=== PATIENT | male | born 1960 | race Caucasian/White ===

== ENCOUNTER 2018-07-13 12:09 | Observation (INO) | payer BC, OTHER ==
[2018-07-13] MEDS ORDERED: SODIUM CHLORIDE 0.9% FLUSH 10 ML SOL IV PRN (12:13)
[2018-07-13] MEDS ORDERED: NITROGLYCERIN 0.4 MG TAB SL PRN (12:13)
[2018-07-13] MEDS ORDERED: ASPIRIN 81 MG CHEWABLE CTB PO STA (12:13)
[2018-07-13 12:20] LABS: HEMATOCRIT 57 % (39-53); MEAN CORPUSCULAR HEMOGLOBIN 28.3 pg (27.0-32.0); MEAN CORPUSCULAR HGB CONC 32.4 gm/dl (32.0-36.0); MEAN CORPUSCULAR VOLUME 87 fL (80-100)
[2018-07-13] MEDS ORDERED: ASPIRIN 81 MG CHEWABLE CTB ONE (12:20)
[2018-07-13 12:25] LABS: HEMOGLOBIN 18.6 gm/dl (13.5-17.7)
[2018-07-13] MEDS ORDERED: ONDANSETRON HCL 4 MG/2 ML SOL IV ONE (12:26)
[2018-07-13] MEDS ORDERED: SODIUM CHLORIDE 0.9% 1000ML 1,000 ML IV ONE ×2 (12:26→18:45)
[2018-07-13 12:35] LABS: BAND NEUTROPHILS % (MANUAL) 9 %; BASOPHILS % (MANUAL) 0 % (0-3); EOSINOPHILS % (MANUAL) 0 % (0-9); LYMPHOCYTES % (MANUAL) 10 % (10-50); MONOCYTES % (MANUAL) 1 % (0-12); NEUTROPHILS % (MANUAL) 80 % (37-80)
[2018-07-13 12:36] LABS: NORMAL RBCS PRESENT
[2018-07-13 12:39] LABS: BLOOD UREA NITROGEN 25 mg/dl (7-18); CARBON DIOXIDE 26.4 mEq/L (21-32); CHLORIDE 102 mMol/L (98-107); CREATINE KINASE 60 U/L (39-308); CREATININE 1.14 mg/dl (0.80-1.30); GLUCOSE 135 mg/dl (74-106); SODIUM 139 mMol/L (136-145); TROP I < 0.017 ng/ml (0.000-0.056)
[2018-07-13] MEDS ORDERED: ONDANSETRON HCL 4 MG TAB ONE (12:46)
[2018-07-13] MEDS ORDERED: ONDANSETRON HCL 4 MG/2 ML SOL ONE (12:47)
[2018-07-13] MEDS: DEXTROSE/SALINE 0.45/KCL 20MEQ 1,000 ML/1,000 ML SOL IV SCH (14:37)
[2018-07-13 14:50] VITALS: RESP 18
[2018-07-13 15:36] LABS: APPEARANCE,URINE Slightly Cloudy; BILIRUBIN,URINE NEGATIVE (NEGATIVE); COLOR,URINE Dark yellow; GLUCOSE, URINE (UA) NEGATIVE (NEGATIVE); KETONES,URINE TRACE (NEGATIVE); LEUKOCYTE ESTERASE ,URINE NEGATIVE (NEGATIVE); NITRATE,URINE NEGATIVE (NEGATIVE); OCCULT BLOOD,URINE NEGATIVE (NEG-TRACE); PH,URINE 5.5; UROBILINOGEN,URINE 0.2 (0.2-1.0 EU)
[2018-07-13 15:46] LABS: BACTERIA NEGATIVE (< 1+); CRYSTALS NEGATIVE (0-3 AVE/HPF); RBC,URINE NEG (0-3AV/HPF); WBC,URINE 0-1 (0-5AV/HPF)
[2018-07-13] MEDS ORDERED: ACETAMINOPHEN 325 MG PO PRN (18:32)
[2018-07-13] MEDS ORDERED: TEMAZEPAM 15MG 15 MG CAP PO PRN (18:32)
[2018-07-13] MEDS ORDERED: LOVASTATIN 20 MG TABLET ONE (20:34)
[2018-07-13] MEDS ORDERED: PANTOPRAZOLE SODIUM 40 MG ECT PO SCH (21:00)
[2018-07-13] MEDS ORDERED: LOVASTATIN 10 MG TAB PO SCH (21:00)
[2018-07-13] MEDS ORDERED: ASPIRIN 325 MG TAB PO SCH (21:00)
[2018-07-13] MEDS ORDERED: ALLOPURINOL 100 MG TAB PO SCH (21:00)
[2018-07-13 21:18] VITALS: O2SAT 94
[2018-07-14] MEDS: DEXTROSE/SALINE 0.45/KCL 20MEQ 1,000 ML/1,000 ML SOL IV SCH (00:11)
[2018-07-14 07:17] LABS: BASOPHILS % (AUTO) 1 % (0-3); EOSINOPHILS % (AUTO) 2 % (0-9); HEMATOCRIT 47 % (39-53); HEMOGLOBIN 15.5 gm/dl (13.5-17.7); LYMPHOCYTES % (AUTO) 16.1 % (10-50); MEAN CORPUSCULAR HEMOGLOBIN 28.4 pg (27.0-32.0); MEAN CORPUSCULAR VOLUME 86 fL (80-100); MONOCYTES % (AUTO) 11.2 % (0-12); NEUTROPHILS % (AUTO) 69.9 % (37-80)
[2018-07-14 07:22] LABS: CALCIUM 7.8 mg/dl (8.5-10.1); CARBON DIOXIDE 25.2 mEq/L (21-32); CREATININE 1.05 mg/dl (0.80-1.30)
[2018-07-14 07:36] VITALS: BP 114/75; PULSE 78; TEMP 97.4
[2018-07-14] MEDS ORDERED: OMEPRAZOLE 20 MG CAPSULE PO SCH (09:00)
== END 2018-07-14 10:16 | disposition home or self-care (01) ==
LOC: ED 12:09 → ACUTE CARE 14:17 → UNDOADMOB 14:17 → ACUTE CARE 14:30
PROVIDERS: ADMIT Family Medicine; ATTEND Family Medicine
DX: N17.9 Acute kidney failure, unspecified (principal); R11.2 Nausea with vomiting, unspecified; R06.02 Shortness of breath; B34.9 Viral infection, unspecified; I45.6 Pre-excitation syndrome
CPT/HCPCS: 36415; 71045; 80048; 81001; 82550; 84484; 85007; 85025; 85027; 85378; 93005; 93012; 96365; 96374; 99070; 99217; 99283; 99285; J2405; A9270-GY

== ENCOUNTER 2018-09-28 09:02 | Day surgery (SDC) | payer OTHER, BC ==
[2018-09-28] MEDS ORDERED: ONDANSETRON HCL 4 MG/2 ML SOL ONE (09:08)
[2018-09-28] MEDS ORDERED: LIDOCAINE HCL 1% MPF 30 SOL ONE ×2 (09:08→10:26)
[2018-09-28] MEDS ORDERED: FENTANYL 100MCG/2ML SOL ONE (09:08)
[2018-09-28] MEDS ORDERED: PROPOFOL 10 MG/ML 200 MG/20 ML EMU IV ONE (09:08)
[2018-09-28] MEDS ORDERED: MIDAZOLAM 2 MG/2 ML SOL ONE (09:08)
[2018-09-28] MEDS ORDERED: DEXAMETHASONE 20 MG/5 ML (4 MG/ML SOL) ONE (09:08)
[2018-09-28] MEDS ORDERED: CEFAZOLIN SODIUM 1 GM PDS ONE (10:33)
[2018-09-28] MEDS ORDERED: HYDROMORPHONE 1 MG/ML SYRINGE ONE ×2 (10:34→11:52)
[2018-09-28] MEDS ORDERED: KETOROLAC TROMETHAMINE 30 MG/ML SOL ONE (11:19)
[2018-09-28 12:26] VITALS: TEMP 98.6
[2018-09-28 12:32] VITALS: BP 116/64; PULSE 84; RESP 18; O2SAT 94
== END 2018-09-28 15:20 | disposition home or self-care (01) | DRG 950 ==
LOC: SURG 09:02
PROVIDERS: ATTEND Orthopaedic Surgery
DX: S83.241D Other tear of medial meniscus, current injury, right knee, subsequent encounter (principal); M94.261 Chondromalacia, right knee
CPT/HCPCS: J0690; J1100; J1885; J2250; J2405; J3010; J1170; J2001; J2704